=== PATIENT | male | born 1960 | race Caucasian/White ===

== ENCOUNTER 2019-12-16 11:23 | Emergency (ER) | payer MEDICAID ==
[~2019-12-16] VITALS: Ht 172.7 cm; Wt 84.8 kg
--- NOTE | 2019-12-16 11:44 | NUR ---
WOKE UP WITH A HEADACHE AT 0900, C/O LEFT LEG [facility] LIAISON ON THE WAY TO HIS DOCTOR. PT AAOX4, VSS. SPEAKING FLUENTLY, NO FACIAL DROOP, TONGUE MIDLINE, STRONG EQUAL EKG TECH, NO ARM/LEG DRIFTING. DENIES DIZZINESS, VISUAL CHANGES, CP, SOB, N/V @ THIS TIME. STEADY GAIT UPON AMB TO RM 7. AWAITING EVAL BY RAFIA.
[2019-12-16] MEDS ORDERED: ACETAMINOPHEN 325 MG TABLET PO ONE (12:00)
[2019-12-16 12:02] LABS: BASOPHILS # (AUTO) 0.2 /CMM (0.0-0.2); BASOPHILS % (AUTO) 2.1 % (0.0-2.0); HEMATOCRIT 43 % (39-51); HEMOGLOBIN 15.1 g/dL (13.5-17.5); LYMPHOCYTES # (AUTO) 1.2 /CMM (0.8-4.8); LYMPHOCYTES % (AUTO) 16.2 % (20.0-44.0); MEAN CORPUSCULAR HGB CONC 35 g/dl (31.0-36.0); MEAN CORPUSCULAR VOLUME 97 fL (80-96); MONOCYTES # (AUTO) 0.4 /CMM (0.1-1.30); MONOCYTES % (AUTO) 4.9 % (2.0-12.0); NEUTROPHILS # (AUTO) 5.1 /CMM (1.8-8.9); NEUTROPHILS % (AUTO) 66.8 % (43.0-81.0); PLATELET COUNT (AUTO) 165 /CMM (150-450); RED BLOOD CELL COUNT(AUTO) 4.47 MIL/uL (4.5-6.0); WHITE BLOOD COUNT (AUTO) 7.7 K/uL (4.3-11.0)
[2019-12-16 12:04] LABS: CALCIUM, SERUM 9.1 mg/dL (8.5-10.1); CARBON DIOXIDE 27 mmol/L (21-32); CHLORIDE 104 mmol/L (98-107); CREATININE 1.2 mg/dL (0.6-1.3); GLUCOSE 106 mg/dL (74-106); SODIUM SERUM 139 mmol/L (136-145); UREA NITROGEN, BLOOD 14 mg/dL (7-18)
[2019-12-16] MEDS ORDERED: ACETAMINOPHEN 325 MG TABLET ONE (12:07)
[2019-12-16] MEDS ORDERED: IOHEXOL-350 100 ML VIAL IV ONE (12:21)
[2019-12-16] MEDS ORDERED: CT SWABBABLE VALVE TRANS SET 1 EA INFUS.SET MC ONE (12:21)
[2019-12-16] MEDS ORDERED: IV NS 0.9% 250 ML IV ONE (12:21)
[2019-12-16 13:01] LABS: CHOLESTEROL 393 mg/dL (<200); HDL CHOLESTEROL 66 mg/dL (40-60); LDL 296 mg/dL (0-99); TRIGLYCERIDES 181 mg/dL (30-150)
--- NOTE | 2019-12-16 15:02 | NUR ---
Patient discharged to home in stable condition. Written and verbal after care instructions given. Patient verbalizes understanding of instruction. IV removed. Catheter intact and site benign. Pressure and 4x4 applied to site. No bleeding noted. Pt stable denies HERNDON, dizziness, weakness, n/v, visual changes & amb with steady gait upon leaving ED.
[2019-12-16 15:03] VITALS: BP 132/87
== END 2019-12-16 15:04 | disposition home or self-care (01) ==
LOC: ER 11:27
DX: R42 Dizziness and giddiness (principal); M79.672 Pain in left foot; R51 Headache; F17.200 Nicotine dependence, unspecified, uncomplicated
CPT/HCPCS: 36415; 70450; 70496; 71045; 80048; 80061; 84484; 85025; 85730; 93005; 99285; J7050; Q9967